=== PATIENT | male | born 1950 | race African-American/Black ===

== ENCOUNTER 2016-11-05 08:14 | Emergency (ER) | payer MEDICARE ==
[~2016-11-05] VITALS: Ht 175.3 cm; Wt 79.5 kg
[~2016-11-05 08:14] MED LIST: AMIT50TA3 PO; AMLO-512 PO; ASPI325T PO; BACL10TA PO; BUPR75TA3 PO; DORZ210OS OU; LISI-662 PO; LORA0.5T2 PO; LOSA50TA2 PO; MINO10 PO; MULT1CAP32 PO; PREG75 PO; TRAZ-147 PO; VERA240C3 PO
[2016-11-05] MEDS ORDERED: MORP30CP13 PO (08:24)
[2016-11-05] MEDS ORDERED: KETOROLAC TROMETHAMINE 60 MG/2 ML VIAL IM ONE (08:45)
[2016-11-05] MEDS ORDERED: HYDROmorphone 2 MG/ML SYRINGE IM ONE (08:45)
[2016-11-05 10:42] VITALS: BP 100/53
== END 2016-11-05 11:52 | disposition home or self-care (01) ==
LOC: EMS 08:17
DX: R10.31 Right lower quadrant pain (principal); G81.94 Hemiplegia, unspecified affecting left nondominant side; G89.29 Other chronic pain; I10 Essential (primary) hypertension; N28.9 Disorder of kidney and ureter, unspecified; Z86.73 Personal history of transient ischemic attack (TIA), and cerebral infarction without residual deficits
CPT/HCPCS: 96372; 99284; J1170; J1885

== ENCOUNTER 2017-01-17 07:32 | Emergency (ER) | payer MEDICARE, OTHER ==
[~2017-01-17] VITALS: Ht 175.3 cm; Wt 72.7 kg
[~2017-01-17 07:32] MED LIST changes: +ASPI-1213 PO; -ASPI325T PO; +MORP30CP13 PO
[2017-01-17 08:12] LABS: BASOPHILS # (AUTO) 0.01 K/uL (0.00-0.20); BASOPHILS % (AUTO) 0.3 % (0.0-2.0); EOSINOPHILS # (AUTO) 0.07 K/uL (0.00-0.70); EOSINOPHILS % (AUTO) 1.45 % (1.0-6.0); HEMATOCRIT 38.1 % (41-53); HEMOGLOBIN 12.6 g/dL (13.5-17.5); LYMPHOCYTES # (AUTO) 1.4 K/uL (1.0-4.8); LYMPHOCYTES % (AUTO) 26.9 % (22.0-44.0); MEAN CORPUSCULAR HEMOGLOBIN 29.1 pg (26.0-34.0); MEAN CORPUSCULAR HGB CONC 33.1 G/dL (31.0-37.0); MEAN CORPUSCULAR VOLUME 88 fL (80-100); MONOCYTES % (AUTO) 19.6 % (2.0-9.0); NEUTROPHILS # (AUTO) 2.7 K/uL (1.8-7.7); NEUTROPHILS % (AUTO) 51.8 % (40.0-70.0); PLATELET COUNT (AUTO) 183 K/uL (150-450); RED BLOOD CELL COUNT(AUTO) 4.33 MIL/uL (4.50-5.90); RED CELL DISTRIBUTION WIDTH 15.9 % (11.5-14.5); WHITE BLOOD COUNT (AUTO) 5.2 K/uL (4.5-11.0)
[2017-01-17 08:19] LABS: ANION GAP 10 mmol/L (8-16); CALCIUM, TOTAL 9.9 mg/dL (8.8-10.5); CARBON DIOXIDE 27 mmol/L (22-29); CHLORIDE 105 mmol/L (98-107); CREATININE 1.48 mg/dL (0.60-1.30); GLOMERULAR FILTR. RATE CALC 57 mL/min (>60); POTASSIUM 3.4 mmol/L (3.5-5.1); SODIUM SERUM 142 mmol/L (136-145); UREA NITROGEN, BLOOD 26 mg/dL (7-18)
[2017-01-17 08:27] LABS: ALANINE AMINOTRANSFERASE 24 U/L (12-78); ALBUMIN 3.9 g/dL (3.4-5.0); ASPARTATE AMINOTRANSFERASE 22 U/L (15-37); BILIRUBIN,TOTAL 0.2 mg/dL (0.1-1.0); TOTAL PROTEIN, SERUM 7.8 g/dL (6.4-8.2)
[2017-01-17 10:13] VITALS: BP 151/96
[2017-01-17 11:00] LABS: APPEARANCE,URINE CLEAR (CLEAR); GLUCOSE, URINE (UA) NEGATIVE (NEGATIVE); KETONES,URINE NEGATIVE (NEGATIVE); LEUKOCYTE ESTERASE ,URINE NEGATIVE (NEGATIVE); OCCULT BLOOD,URINE NEGATIVE (NEGATIVE); PH,URINE 6.5 (5.0-8.0); PROTEIN,URINE NEGATIVE (NEGATIVE)
[2017-01-17 11:36] LABS: RBC,URINE None Seen /HPF (0-2); WBC,URINE 0-2 /HPF (0-5)
[2017-01-17 11:37] LABS: SQUAMOUS EPITHELIAL CELL,UR Rare /LPF (None Seen)
[2017-01-17 12:35] VITALS: BP 143/87
== END 2017-01-17 12:55 | disposition home or self-care (01) ==
LOC: EMS 07:34 → EEVIPCON 07:34 → EMS 12:55
DX: F29 Unspecified psychosis not due to a substance or known physiological condition (principal); I10 Essential (primary) hypertension
CPT/HCPCS: 36415; 51701; 70450; 71010; 80053; 80307; 81001; 85025; 93005; 99285; G0480